=== PATIENT | female | born 1935 | race Caucasian/White ===

== ENCOUNTER → 2018-12-29 | Outpatient (CLI) | payer OTHER, MEDICARE ==
[~2018-12-29] MED LIST: ASA5UEC PO; CALCIUM 600 +1 EAC1 PO; CARVEDILOL25 MG PO; CENTRUM SILVER1 EAC4 PO; CIPRO500 MG PO; FISH OIL 1,001000 MG PO; FLAXSEED OIL1000 MG PO; GINGER ROOT550 MG PO; GLUCOSAMINE HC500 MG PO; LOPRESSOR50 PO; LOVASTAT40 PO; PRED FORTE 1% EY5 M1 OPHTHALMIC; PRILOSEC20 MG PO; TIMOLOL MA0.5 %/5 M2 OPHTHALMIC; VITAMIN D2000 UNIT PO; VITAMIN E400 UNIT PO; XALATAN2.5 ML OPHTHALMIC
== END ==
LOC: BC 15:25
DX: Z12.31 Encounter for screening mammogram for malignant neoplasm of breast (principal)

== ENCOUNTER 2019-03-21 19:40 | Inpatient (IN) | payer OTHER, MEDICARE ==
[~2019-03-21] VITALS: Ht 165.1 cm; Wt 71.2 kg
[2019-03-21 19:41] VITALS: BP 125/101
[2019-03-21 20:25] LABS: BASOPHILS 0.4 % (0.0-2.0); EOSINOPHILS 1.3 % (0.0-3.0); HEMATOCRIT 36.6 % (37.0-47.0); HEMOGLOBIN 12.1 gm/dL (12.0-15.0); LYMPHOCYTES 20.9 % (24.0-44.0); MCH 31.8 pg (26.0-34.0); MCV 96.2 fL (80.0-100.0); MONOCYTES 8.5 % (1.0-8.0); PLATELET COUNT 167 thou/uL (150-400); POLYS 68.9 % (36.0-66.0); RBC 3.81 mil/uL (4.20-5.00); RDW 15.4 % (10.5-14.5); WBC 4.4 thou/uL (4.0-11.0)
[2019-03-21 20:32] LABS: ANION GAP 6 mmol/L (7-16); BUN 15 mg/dL (7-18); CALCIUM 9.6 mg/dL (8.5-10.1); CHLORIDE 98 mmol/L (98-107); CO2 28 mmol/L (21-32); CREATININE 0.9 mg/dL (0.6-1.0); GLUCOSE 139 mg/dL (74-106); SODIUM 132 mmol/L (136-145)
[2019-03-21 20:42] LABS: ALBUMIN 3.8 g/dL (3.4-5.0); SGOT 42 U/L (15-37); SGPT 45 U/L (30-65); TOTAL BILIRUBIN 0.8 mg/dL (<0.1-1.0); TOTAL PROTEIN 7.4 g/dL (6.4-8.2); TROPONIN-I <0.06 ng/mL (<0.06)
[2019-03-21 21:45] VITALS: BP 177/101
[2019-03-21 22:54] VITALS: BP 153/96
[2019-03-21 23:15] VITALS: BP 150/111
--- NOTE | 2019-03-22 01:39 | NUR ---
ADMIT:PT ADMITTED FROM ED WITH CHEST PAIN,DYSPNEA AND HYPONATREMIA,PT ARRIVED TO UNIT VIA CART ACCOMPANIED BY THE FAMILY..PT IS A/OX4.VSS.ON RA W/O RESPIRATORY DISTRESS.PT C/O PAIN THAT IS INTERMITTENT,STABBING PAIN THAT IS BELOW HER LEFT BREAST AND GOES TO HER BACK AND LASTS FOR SECONDS AND THEN DISAPPER.UNABLE TO DO MED RECONCILLATION SINCE PATIENT'S OR DAUGHTER DOES NOT REMEMBER WHAT KIND OF MEDICATION PT IS ON,DAIGHTER TO BRING HER MEDS BOTTLES HERE IN THE MORNING.ORIENTED PT AND FAMILY TO RM AND UNIT ACTIVITIES,REVIEWED POC AND IN AGREEMENT.ASSESSMENT DOCUMENTED.UP WITH SBA TO BEDSIDE COMMOND.URINATING FREQUENTLY R/T LASIX ADMINISTRATION AT THE ED.PT DENIES ANY OTHER NEEDS AT THIS TIME.DR WATSON AWARE OF PT ADMISSION.WILL CONT TO MONITOR PER POC.
[2019-03-22 04:02] VITALS: BP 153/85
[2019-03-22 07:40] VITALS: BP 150/95
[2019-03-22] MEDS ORDERED: LISINOPRIL2.5 MG PO (10:29)
--- NOTE | 2019-03-22 11:42 | EKG ---
[address] [address] ELECTROCARDIOGRAM REPORT Name: TIMOTHY MUJICA Room #: 209-P ADM IN M.R.#: [id number] Admission: 03/21/19 Attend Phys: Darrick Nunez MD Discharge: Date of : 37 Report #: [id number] THIS REPORT FOR: //name// [facility] ED Test Date: 2019-03-21 Test Time: 20:04:09 Pat Name: TIMOTHY MUJICA Department: Room: 209 Gender: F Behavioral Psychologist: JOSEFINA : 1935 Requested By: Lucila Shell Order Number: [id number] MD: Miah Alfaro Measurements Intervals [place] Rate: 96 P: [place]: QRS: 77 QRSD: 125 T: 16 QT: 340 QTc: 430 Interpretive Statements Atrial fibrillation Nonspecific intraventricular conduction delay Compared to ECG 08/26/2014 16:06:55 Intraventricular conduction delay now present Sinus rhythm no longer present Sinus arrhythmia no longer present Ventricular premature complex(es) no longer present Electronically Signed On 03-22-2019 11:42:22 CDT by Miah Alfaro [email or web address] <ELECTRONICALLY SIGNED> By: Miah Alfaro MD 03/22/19 1142 03 03 Miah Alfaro MD /EMORY
[2019-03-22 15:25] VITALS: BP 149/93
--- NOTE | 2019-03-22 18:20 | NUR ---
PATIENT HAS RESTED IN BED MOST OF THE DAY. STARTED ON ISOLATION FOR SHINGLES. SHE DOES NOT SEEM TO BE IN PAIN AT THIS TIME. RESPITRAIONS ARE NON LABORED. PLEASANT WITH CARE. WILL CONT WITH PLAN OF CARE.
[2019-03-22 19:32] VITALS: BP 156/83
[2019-03-23 01:04] LABS: URINE BILIRUBIN NEGATIVE (Negative); URINE BLOOD 1+ (Negative); URINE CLARITY CLEAR; URINE COLOR YELLOW; URINE GLUCOSE-RANDOM* NEGATIVE (Negative); URINE KETONES NEGATIVE (Negative); URINE NITRITE-REFLEX NEGATIVE (Negative); URINE PROTEIN (DIPSTICK) TRACE (Negative); URINE UROBILINOGEN 0.2 E.U./dl (0.2-1.0)
[2019-03-23 01:08] VITALS: BP 146/89
[2019-03-23 02:01] LABS: URINE LEUKOCYTES-REFLEX 3+ (Negative)
[2019-03-23 02:14] LABS: BACTERIA-REFLEX 1-9 Few /HPF (None Seen); CASTS None Seen /LPF (None Seen); CRYSTALS None Seen /LPF (None Seen); MUCUS 0-3 Light strn/LPF (None Seen); SQUAMOUS >10 Many /LPF (0-3); TRANSITIONAL EPITHEL CELL >10 Many /LPF (None Seen); URINE RBC 3-10 Few /HPF (0-2)
--- NOTE | 2019-03-23 02:50 | NUR ---
ASSUMED CARE OF PATIENT AT 1900. VSS, AFEBRILE. UP TO THE BATHROOM MULTIPLE TIMES WITH NO OUTPUT. BLADDER SCAN SHOWED 100 CC. URINE SAMPLE SENT TO LAB. C/O LEFT SIDED INTERMITTENT PAIN, GIVEN TYLENOL, STATES RELIEF. NO OTHER CONCERNS AT THIS TIME. PROGRESSING TOWARDS POC GOALS.
[2019-03-23 04:08] VITALS: BP 133/75
--- NOTE | 2019-03-23 07:54 | HC ---
[facility] [place] [address] CONSULTATION Name: TIMOTHY MUJICA Room #: 209-P ADM IN M.R.#: [id number] Admission: 03/21/19 Attend Phys: Darrick Nunez MD Discharge: Date of : 36 Report #: [id number] THIS REPORT FOR: //name// CC: Bandar Nunez DATE OF SERVICE: 03/22/2019 CARDIOLOGY CONSULTATION INDICATION: Dyspnea. HISTORY OF PRESENT ILLNESS: This is a pleasant 84-year-old female with a history of congenital heart disease, hypertension, lupus, TIA and hypercholesterolemia. For the past several days, she has noted increasing dyspnea with mild levels of physical exertion. She also notes a discomfort in the lateral chest area, near her left scapula. She denies any recent episodes of fever, chills, nausea or diarrhea. She has a history of congenital heart disease. The patient is unclear of the diagnosis or surgery. 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 PAST MEDICAL HISTORY: Congenital heart with surgery at age 17, details unknown. 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 Hyperlipidemia and GERD. ALLERGIES: None. MEDICATIONS: At home include lovastatin 40 mg, aspirin once a day, Prilosec, Coreg 25 mg twice a day. FAMILY HISTORY: Negative for premature CAD. SOCIAL HISTORY: Positive for tobacco use. REVIEW OF SYSTEMS: A full 10-point review of systems is performed. Only the pertinent positives and negatives are described in the HPI. PHYSICAL EXAMINATION: VITAL SIGNS: Blood pressure is 150/90. Heart rate is 120 beats per minute. GENERAL APPEARANCE: This is a well-developed, well-nourished female in no acute distress. HEENT: Normocephalic, atraumatic. Oral mucosa moist. NECK: Supple. LUNGS: Clear to auscultation. [facility] [address] [place] [address] CONSULTATION Name: TIMOTHY MUJICA Room #: 209-P [facility] IN .R.#: [id number] Admission: 03/21/19 Attend Phys: Darrick Nunez MD Discharge: Date of : 36 Report #: [id number] CARDIAC: Tachycardic. S1, S2 positive. ABDOMEN: Soft, nontender. EXTREMITIES: No cyanosis. Trace edema. ECG reveals atrial fibrillation with a rapid rate, low voltage. LABORATORY VALUES: Troponin is negative x 2. White count is 4.4, hemoglobin is 12.1, creatinine is 0.9. 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 ASSESSMENT AND PLAN: 1. Atrial fibrillation with a rapid rate, no prior diagnosis, most likely contributing to her dyspnea on exertion. Her heart rate is not adequately controlled. We will change the beta kashif to atenolol. She has an elevated CHADS score; we will start anticoagulation therapy. She will need an echocardiogram and TSH level check. 2. Hypertension. We will start atenolol for rate control, may need additional medications. 3. Hypercholesterolemia. Continue with statin therapy. 4. Congenital heart disease. We will obtain an echocardiogram. <ELECTRONICALLY SIGNED> By: Miah Alfaro MD 03/23/19 0754 1222 0020 Miah Alfaro MD /nt
[2019-03-23 08:00] VITALS: BP 153/75
--- NOTE | 2019-03-23 09:02 | H ---
[facility] [place] [address] [place] [address] HISTORY AND PHYSICAL Name: TIMOTHY MUJICA Room #: 209-P ADM IN M.R.#: [id number] Admission: 03/21/19 Attend Phys: Darrick Nunez MD Discharge: Date of : 36 Report #: [id number] THIS REPORT FOR: //name// CC: Bandar Nunez DATE OF SERVICE: 03/22/2019 CHIEF COMPLAINT: Wheezing and shortness of breath. HISTORY OF PRESENT ILLNESS: The patient is an 84-year-old female who came to the Emergency Room with wheezing and shortness of breath. She developed symptoms late yesterday afternoon was also complaining of pain in the left rib area. She had no fever, chills or productive cough. She has noted a little bit of swelling in the ankles, left greater than right, which is a chronic issue. She does have a history of atrial fibrillation and takes carvedilol and aspirin, but has not been on oral anticoagulation. She has also complained of a rash on the left mid back. In talking to her today, she said the left chest and rib pain has been an ongoing problem for months. She describes it as a quick "sharp" seconds of pain that resolved spontaneously. It is not associated with any particular activity. PAST MEDICAL HISTORY: Hypertension, atrial fibrillation, dyslipidemia, history of TIA 2014. PAST SURGICAL HISTORY: She has a left hip and knee replacement, right hip replacement, hysterectomy. FAMILY HISTORY: Noncontributory. SOCIAL HISTORY: She lives at home alone. No chronic alcohol or tobacco use. ALLERGIES: None. MEDICATIONS: Eye drops, aspirin 325 mg, Prilosec, multivitamin, glucosamine, lisinopril 40 mg, Coreg 25 mg b.i.d. REVIEW OF SYSTEMS: Denies headache, chest pain, abdominal pain, nausea, vomiting, diarrhea, constipation, dysuria, syncope. OBJECTIVE: VITAL SIGNS: Temperature 36.8, pulse 114, respirations 20, blood pressure 150/95, O2 sat 99% on room air. GENERAL: She is awake and alert, in no distress. HEAD AND NECK: Unremarkable. LUNGS: Clear. [facility] [address] [place] [address] HISTORY AND PHYSICAL Name: TIMOTHY MUJICA OCTOBER Room #: 209-P [facility] IN .R.#: [id number] Admission: 03/21/19 Attend Phys: Darrick Nunez MD Discharge: Date of : 36 Report #: [id number] HEART: Tachycardic, irregular. No murmur. ABDOMEN: Soft, normoactive bowel sounds. EXTREMITIES: No edema. BACK: On the left mid back, there is a small area of red rash with some small blisters. LABORATORY DATA: CBC and chemistry were normal. Troponin negative. Chest x-ray was clear. BNP was 5000. ASSESSMENT: 1. Rapid atrial fibrillation. 2. Hypertension. 3. Possible herpes zoster in the left mid back. 4. Chest pain due to the above. PLAN: I will resume her home medications. It does not appear she has been on chronic anticoagulation, but merely an aspirin. There was a report of nonsustained V-tach overnight magnesium and troponin will be ordered and I will ask the Cardiology team to follow her. <ELECTRONICALLY SIGNED> By: Darrick Nunez MD 03/23/19 0902 1041 1100 Darrick Nunez MD /nt
[2019-03-23 12:00] VITALS: BP 151/89
--- NOTE | 2019-03-23 13:36 | 2DMMODE ---
[facility] [employer] [place] [address] 2 D/M-MODE ECHOCARDIOGRAM Name: TIMOTHY MUJICA OCTOBER Room #: 209-P ADM IN M.R.#: [id number] Admission: 03/21/19 Attend Phys: Jessy Peck Discharge: Date of : 36 Report #: [id number] THIS REPORT FOR: //name// APPROVED REPORT Study performed: 03/23/2019 09:13:00 EXAM: Comprehensive 2D, Doppler, and color-flow Echocardiogram Patient Location: Echo lab Room #: 209 Status: routine BSA: 1.78 HR: 101 bpm BP: 133/75 mmHg Rhythm: Atrial Fibrillation Other Information Study Quality: Adequate Indications Congenital Heart Disease Atrial Fibrillation Hypertension/HDD HLD, Hx TIA Echo Enhancing Agent Indication: Rule out Shunt Agent(s) / Amount(s) Used: Agitated Saline 6 cc 2D Dimensions RVDd: 53.94 mm IVSd: 12.09 (7-11mm) LVOT Diam: 22.10 (18-24mm) LVDd: 34.44 mm PWd: 12.81 (7-11mm) Ascending Ao: 31.61 (22-36mm) LVDs: 23.14 (25-40mm) Aortic Root: 33.26 mm Volumes Left Atrial Volume (Systole) Single Plane 4CH: 87.92 mL Single Plane 2CH: 90.12 mL Aortic Valve AoV Peak Bhaskar.: 1.69 m/s AO Peak Gr.: 11.44 mmHg LVOT Max P.86 mmHg LVOT Max V: 0.46 m/s [facility] [address] [place] [address] 2 D/M-MODE ECHOCARDIOGRAM Name: TIMOTHY MUJICA OCTOBER Room #: 209-P [facility] IN ..#: [id number] Admission: 03/21/19 Attend Phys: Jessy Peck Discharge: Date of : 36 Report #: [id number] DOMO Vmax: 1.05 cm2 Mitral Valve MV Decel. Time: 157.29 ms MV E Max Bhaskar.: 1.50 m/s IVRT: 155.71 ms Pulmonary Valve PV Peak Bhaskar.: 2.21 m/s PV Peak Gr.: 12.71 mmHg Tricuspid Valve TR Peak Bhaskar.: 3.25 m/s TR Peak Gr.: 42.29 mmHg Left Ventricle The left ventricle is normal size. Regional wall motion is not well visualized but grossly normal. Mild concentric left ventricular hypertrophy. The left ventricular systolic function is normal. The left ventricular ejection fraction is within the normal range. LVEF is 55%. This study is not technically sufficient to allow evaluation of the LV diastolic function due to atrial fibrillation. Right Ventricle Right ventricle is severely dilated. Right ventricle is moderately hypokinetic. Atria Left atrium is severely dilated. Injection of bubble contrast documented right to left shunting. Right atrium is moderately dilated. Aortic Valve Aortic valve leaflets are mildly thickened and calcified. Mild aortic regurgitation. There is no aortic valvular stenosis. Mitral Valve Mitral valve leaflets are mildly sclerotic. Severe mitral regurgitation. No evidence of mitral valve stenosis. Tricuspid Valve The tricuspid valve is normal in structure. Moderate tricuspid regurgitation. PAP is estimated at 50 mmHg. Pulmonic Valve Pulmonic valve leaflets are not well visualized. Mild to moderate pulmonic stenosis. Max PV velocity is 2.2 m/sec (max peak gradient of [facility] [address] [address] 2 D/M-MODE ECHOCARDIOGRAM Name: TIMOTHY MUJICA AMRIT Room #: 209-P ADM IN M.R.#: [id number] Admission: 03/21/19 Attend Phys: Jessy Peck Discharge: Date of : 36 Report #: [id number] 19 mmHg and a mean peak gradient of 9.6 mmHg) Severe pulmonic regurgitation. Great Vessels The aortic root is normal in size. IVC is normal in size and collapses <50% with inspiration. 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 Pericardium There is no pericardial effusion. <Conclusion> The left ventricular systolic function is normal. LVEF is 55%. Right ventricle is severely dilated. Injection of bubble contrast documented right to left shunting. Left atrium is severely dilated. Right atrium mildly dilated Aortic valve leaflets are mildly thickened and calcified. Mild aortic regurgitation, no stenosis. Mitral valve leaflets are mildly sclerotic. Severe mitral regurgitation. Moderate tricuspid regurgitation. Pulmonary artery pressure estimated at 50 mmHg. Mild pulmonic stenosis. Max PV velocity is 2.2 m/sec (max peak gradient of 19 mmHg and a mean peak gradient of 9.6 mmHg) Severe pulmonic regurgitation. 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 There is no pericardial effusion. <ELECTRONICALLY SIGNED> By: Donald Walters MD, FACC 03/23/19 1336 35 35 Donald Walters MD, FACC /INF
[2019-03-23 16:00] VITALS: BP 140/82
--- NOTE | 2019-03-23 17:44 | NUR ---
ASSUMED CARE OF PT AT SHIFT CHANGE. ASSESSMENTS CHARTED. MEDS GIVEN PER AUG. VSS. A&OX4. NO C/O SOA. C/O PAIN TREATED WITH PO MEDS WITH SOME RELIEF. ULTRASOUND TODAY FOUND NO EVIDENCE OF DVT. PT IS REFUSING BED ALARM, WAS EDUCATED ON IMPORTANCE OF FALL PRECAUTIONS DUE TO AFIB. PT STATED DR. BOX SAID SHE DIDN'T NEED THE BED ALARM. PHYS THERAPY WORKED WITH PT AND ENCOURAGED HER TO USE WALKER FULLTIME. PLAN TO GO HOME TOMORROW IF RATE IS CONTROLLED. WILL CONTINUE TO MONITOR AND FOLLOW POC.
[2019-03-23 20:38] VITALS: BP 153/78
[2019-03-24 04:41] VITALS: BP 115/67
[2019-03-24 06:14] LABS: CALCIUM 9.3 mg/dL (8.5-10.1); POTASSIUM 3.5 mmol/L (3.5-5.1)
--- NOTE | 2019-03-24 07:51 | EKG ---
[address] [address] ELECTROCARDIOGRAM REPORT Name: TIMOTHY MUJICA Room #: 209-P ADM IN M.R.#: [id number] Admission: 03/21/19 Attend Phys: Darrick Nunez MD Discharge: Date of : 36 Report #: [id number] THIS REPORT FOR: //name// [facility] Test Date: 2019-03-23 Test Time: 08:40:53 Pat Name: TIMOTHY MUJICA Department: Room: 209 P Gender: F Night Order Selector: Rosendo RODRIGUEZ : 1935 Requested By: Kimmy Zapata Order Number: [id number] MD: Donald Walters Measurements Intervals [place] Rate: 93 P: [place]: QRS: 72 QRSD: 137 T: 27 QT: 361 QTc: 449 Interpretive Statements Atrial fibrillation Nonspecific intraventricular conduction delay Compared to ECG 03/21/2019 20:04:09 No significant changes Electronically Signed On 03-24-2019 7:50:53 CDT by Donald Walters [email or web address] <ELECTRONICALLY SIGNED> By: Donald Walters MD, [facility] 03/24/19 0750 D: [id number] Donald Walters MD, FACC /EPI
[2019-03-24 08:08] VITALS: BP 146/72
[2019-03-24 11:37] VITALS: BP 141/80
[2019-03-24] MEDS ORDERED: FAMCICLOVIR250 MG PO (13:33)
[2019-03-24] MEDS ORDERED: ELIQUIS5 MG PO (13:34)
[2019-03-24] MEDS ORDERED: ATENOLOL 25 MG25 M1 PO (13:34)
[2019-03-24] MEDS ORDERED: LISINOPRIL20 MG PO (13:35)
[2019-03-24] MEDS ORDERED: DILTIAZEM 24HR180 M1 PO (13:35)
[2019-03-24 14:04] VITALS: BP 141/80
--- NOTE | 2019-03-24 16:01 | NUR ---
ASSUMMED PT CARE AT APPROXIMATELY 0700. PT A&O X4. ASSESSMENT CHARTED. FALL PRECAUTIONS IN PLACE. PT AMBULATES STEADY/INDEPENDENT. PT DENIES SOB. PT DENIES CHEST PAIN. PT STATES SHE HAS GENERALIZED PAIN. PT RECEIVED ANALGESICS AND STATED ANALGESICS RELEIVED PAIN. PT VITAL SIGNS STABLE. PT DISCHARGING HOME WITH FAMILY. PT AND FAMILY RECEIVED DISCHARGE EDUCATION. PT AND FAMILY STATED UNDERSTANDING AND DENIED HAVING FURTHER QUESTIONS. IV DC. TELE DC. PT RECEIVING TRANSPORT OFF UNIT WITH HOSPITAL STAFF. PT LEFT UNIT AT APPROXIMATELY 1600. PT DENIES HAVING FURTHER CONCERNS.
--- NOTE | 2019-03-25 12:30 | D ---
[facility] [place] [facility] [place] [address] DISCHARGE SUMMARY Name: TIMOTHY MUJICA Room #: 209-P [facility] IN M.R.#: [id number] Admission: 03/21/19 Attend Phys: Darrick Nunez MD Discharge: 03/24/19 Date of : 36 Report #: [id number] THIS REPORT FOR: //name// CC: Bandar Nunez DATE OF SERVICE: 03/24/2019 FINAL DIAGNOSES: 1. New-onset atrial fibrillation with rapid ventricular response. 2. Acute herpes zoster, left mid back. 3. Hypertension. 4. Mitral regurgitation. HOSPITAL COURSE: The patient was admitted with shortness of breath and wheezing. She was found to have rapid atrial fibrillation with heart rates in the [address] Alfaro was consulted. Medications were adjusted for rate control. She was switched from aspirin to Eliquis for anticoagulation and stroke risk reduction. She also complained of left rib and back pain, and there was a blister rash in 1 dermatome over the posterior ribs, consistent with herpes zoster outbreak. She was treated with oral Famvir. Echocardiogram was obtained, revealing severe mitral regurgitation. I discussed this with her and at this point, she would not be interested in any surgical intervention, and I recommended that we could pursue this as an outpatient workup. I did not feel an inpatient Thoracic Surgery consultation was necessary at this point, but again, can be followed up as an outpatient. She was eager for discharge home. PHYSICAL EXAMINATION: On the day of discharge: GENERAL: She was awake and alert. VITAL SIGNS: Stable and the heart rates in the 90s. LUNGS: Clear with no wheezing. SKIN: The left mid back rash was dry. HEART: Irregular. No murmur. ABDOMEN: Soft, normoactive bowel sounds. EXTREMITIES: No edema. DISPOSITION: She is discharged to home with diet and activity as tolerated. Followup with Dr. Andersen and Dr. Alfaro in 2 weeks. DISCHARGE MEDICATIONS: Famvir 500 mg t.i.d. for 5 more days, Eliquis 5 mg b.i.d., atenolol 75 mg b.i.d., diltiazem CD 180 mg a day, lisinopril 20 mg a [facility] [address] [place] [address] DISCHARGE SUMMARY Name: TIMOTHY MUJICA OCTOBER Room #: 209-P [facility] IN M.R.#: [id number] Admission: 03/21/19 Attend Phys: Darrick Nunez MD Discharge: 03/24/19 Date of : 37 Report #: [id number]. Resume losartan 40 mg, Prilosec, her eye drops, vitamin D, multivitamin, glucosamine. She is to discontinue aspirin 325 mg, Coreg and lisinopril 40 mg. <ELECTRONICALLY SIGNED> By: Darrick Nunez MD 03/25/19 1230 1341 1419 Darrick Nunez MD /nt
== END 2019-03-24 15:58 | disposition home or self-care (01) | DRG 309 ==
LOC: ER 19:40 → EROBS 21:30 → 2N 21:30
PROVIDERS: Internal Medicine Cardiovascular Disease; Nurse Practitioner Family; ADMIT Internal Medicine Geriatric Medicine
PROC: 3E0234Z Introduction of Serum, Toxoid and Vaccine into Muscle, Percutaneous Approach (ICD-10-PCS; principal; 2019-03-22)
DX: I48.91 Unspecified atrial fibrillation (principal); E87.1 Hypo-osmolality and hyponatremia; I10 Essential (primary) hypertension; M32.9 Systemic lupus erythematosus, unspecified; Z96.643 Presence of artificial hip joint, bilateral; Z96.652 Presence of left artificial knee joint; E78.00 Pure hypercholesterolemia, unspecified; Z96.1 Presence of intraocular lens; F17.210 Nicotine dependence, cigarettes, uncomplicated; E87.70 Fluid overload, unspecified; K21.9 Gastro-esophageal reflux disease without esophagitis; B02.9 Zoster without complications; E78.5 Hyperlipidemia, unspecified; Z60.2 Problems related to living alone; I08.8 Other rheumatic multiple valve diseases; Z90.710 Acquired absence of both cervix and uterus; Z86.73 Personal history of transient ischemic attack (TIA), and cerebral infarction without residual deficits; Z98.41 Cataract extraction status, right eye; Z79.899 Other long term (current) drug therapy; Z79.82 Long term (current) use of aspirin; Q24.9 Congenital malformation of heart, unspecified; Z23 Encounter for immunization
CPT/HCPCS: 10081

== ENCOUNTER 2019-03-31 15:23 | Inpatient (IN) | payer OTHER, MEDICARE ==
[~2019-03-31] VITALS: Ht 167.6 cm; Wt 72.3 kg
[~2019-03-31 15:23] MED LIST changes: +ATENOLOL 25 MG25 M1 PO; +DILTIAZEM 24HR180 M1 PO; +ELIQUIS5 MG PO; +FAMCICLOVIR250 MG PO; +LISINOPRIL2.5 MG PO; +LISINOPRIL20 MG PO
[2019-03-31 17:00] VITALS: BP 146/77
--- NOTE | 2019-03-31 17:58 | NUR ---
ASSUMMED PT CARE AT APPROXIMATELY 1600. PT A&O X4. ASSESSMENT CHARTED. ADMISSION COMPLETE. PT DENIES HAVING CHEST PAIN. PT DENIES HAVING SOB, ONLY ON EXERSION. VITAL SIGNS STABLE. PT DENIES HAVING ACUTE PAIN. PT COMFORTABLE IN BED. PT AND PT'S FAMILY EDUCATED ABOUT POC. PT AND PT'S FAMILY STATED UNDERSTANDING AND DENIED HAVING FURTHER QUESTIONS. PT AMBULATES STEADY C WALKER AND STANDBY. FALL PRECAUTIONS IN PLACE.
[2019-03-31 20:24] LABS: ABSOLUTE NEUTROPHILS 4.7 thou/uL (1.4-8.2); BASOPHILS 0.6 % (0.0-2.0); EOSINOPHILS 0.6 % (0.0-3.0); HEMATOCRIT 39.9 % (37.0-47.0); LYMPHOCYTES 18.4 % (24.0-44.0); MCH 31.2 pg (26.0-34.0); MCHC 32.6 g/dL (28.0-37.0); MCV 95.7 fL (80.0-100.0); MONOCYTES 4.9 % (1.0-8.0); PLATELET COUNT 238 thou/uL (150-400); POLYS 75.5 % (36.0-66.0); RBC 4.17 mil/uL (4.20-5.00); RDW 15.3 % (10.5-14.5); WBC 6.2 thou/uL (4.0-11.0)
[2019-03-31 20:33] LABS: ALBUMIN 3.4 g/dL (3.4-5.0); CALCIUM 9.1 mg/dL (8.5-10.1); CREATININE 0.9 mg/dL (0.6-1.0); TOTAL BILIRUBIN 1.1 mg/dL (<0.1-1.0); TOTAL PROTEIN 7.2 g/dL (6.4-8.2)
[2019-03-31 20:56] VITALS: BP 143/55
[2019-04-01 00:39] VITALS: BP 132/73
[2019-04-01 04:00] VITALS: BP 171/76
--- NOTE | 2019-04-01 05:25 | NUR ---
ASSUMED PT CARE AT 1900. PT IS ALERT AND ORIENTED. NO FAMILY AT BEDSIDE. NO SIGN OF DISTRESS NOTED. FALL PRECAUTION IN PLACE. ASSESSMENT COMPLETED AND CHARTED. SCHEDULED MEDS ADMINISTERED TO PT. PT TOLERATED PO INTAKE. NO SIGN OF DISTRESSNOTED INTAKE. PT IS STABLE. DENIES ANY FURTHER NEEDS AT THIS TIME.
[2019-04-01 07:28] VITALS: BP 150/86
--- NOTE | 2019-04-01 16:50 | NUR ---
pt off unit to xry.
--- NOTE | 2019-04-01 17:02 | NUR ---
PT RETURN FORM XRY TO ROOM.
--- NOTE | 2019-04-01 17:31 | EKG ---
[address] [address] ELECTROCARDIOGRAM REPORT Name: TIMOTHY MUJICA Room #: 207-P ADM IN M.R.#: [id number] Admission: 03/31/19 Attend Phys: Jessy Rapp Discharge: Date of : 37 Report #: [id number] THIS REPORT FOR: //name// [facility] Test Date: 2019-03-31 Test Time: 19:39:14 Pat Name: TIMOTHY MUJICA Department: Room: 207 P Gender: F Polytechnic Teacher: Jessy MASON : 1935 Requested By: Bandar Andersen Order Number: [id number] MD: Donald Walters Measurements Intervals [place] Rate: 62 P: [place]: QRS: 90 QRSD: 141 T: -4 QT: 420 QTc: 427 Interpretive Statements Atrial fibrillation Nonspecific intraventricular conduction delay Minimal ST depression Compared to ECG 03/23/2019 08:40:53 No significant change was found Electronically Signed On 04-01-2019 17:31:38 CDT by Donald Walters [email or web address] <ELECTRONICALLY SIGNED> By: Donald Walters MD, [facility] [id number] [phone] Donald Walters MD, [facility] /EPI
--- NOTE | 2019-04-01 17:40 | NUR ---
Met with patient and spoke with dtr, sister at bedside from [place]. Patient with recent dc from hospital. Sister reports when she came home from hospital she was very weak. sister reports she goes to bathroom and returned back to bed. Dtr reports patient has a dog and did not let out for 2 days. Discussed with dtr therapy recommendations of post acute care. Patient may need longterm care. dtr to review list for skilled.
[2019-04-01 21:07] VITALS: BP 127/60
--- NOTE | 2019-04-02 04:02 | NUR ---
PT ALERT AT ORIENTED. FAMILY AT BEDSIDE AT BEGINNING OF SHIFT. DENIES CHEST PAIN, SOB. NO WHEEZING. VITALS STABLE. PT C/O GENERALIZED PAIN. TRAMADOL SCHEDULED, AND PRN TYLENOL GIVEN. VOIDS BY BEDSIDE COMMODE. ASSIST OF ONE. WILL CONTINUE TO MONITOR.
[2019-04-02 05:56] VITALS: BP 136/83
[2019-04-02 06:41] LABS: ALBUMIN 3.2 g/dL (3.4-5.0); CALCIUM 8.9 mg/dL (8.5-10.1); CREATININE 0.9 mg/dL (0.6-1.0); POTASSIUM 3.8 mmol/L (3.5-5.1); TOTAL PROTEIN 6.6 g/dL (6.4-8.2)
[2019-04-02 07:55] VITALS: BP 146/70
--- NOTE | 2019-04-02 11:04 | H ---
[facility] [place] [address] HISTORY AND PHYSICAL Name: TIMOTHY MUJICA Room #: 207-P ADM IN M.R.#: [id number] Admission: 03/31/19 Attend Phys: Jessy Rapp Discharge: Date of : 37 Report #: [id number] THIS REPORT FOR: //name// CC: Bandar Andersen DATE OF SERVICE: 03/31/2019 CHIEF COMPLAINT: Weakness. HISTORY OF PRESENT ILLNESS: The patient is an 84-year-old female who was readmitted from the office with complaints of general weakness, leg swelling and left chest wall pain. She was recently hospitalized for shortness of breath and wheezing and was diagnosed with rapid atrial fibrillation, heart rates were in the 150s, rate control was achieved and she was placed on anticoagulation with Eliquis. During that stay, she was diagnosed and treated for shingles outbreak on the left chest wall, rib area and under the left breast. She was seen by Cardiology during that stay. An echocardiogram also revealed mitral regurgitation and tricuspid regurgitation with elevated pulmonary artery pressures. She was medically stabilized and discharged home with plans for outpatient referral to Cardiothoracic Surgery in regards to valve replacement. Cardiology followup. However, her sisters in town staying the last several days, she has been weaker. She has had a hard time getting around the home. She has had more pain in the left chest wall area and was too weak to care for herself. She was seen in the office and redirected for admission yesterday. PAST MEDICAL HISTORY: Atrial fibrillation, recent shingles outbreak, mitral regurgitation, hypertension, osteoarthritis. PAST SURGICAL HISTORY: She has had a left hip and knee replacement and a right hip replacement and hysterectomy. FAMILY HISTORY: Noncontributory. SOCIAL HISTORY: She lives at home alone. No chronic alcohol or tobacco use. ALLERGIES: None. MEDICATIONS: Eliquis 5 mg twice a day, atenolol 75 mg twice a day, diltiazem 180 mg a day, lisinopril 20 mg, eyedrops, vitamins. REVIEW OF SYSTEMS: She denies headache, chest pain, shortness of breath, abdominal pain, nausea, vomiting, diarrhea, constipation, dysuria, syncope. OBJECTIVE: VITAL SIGNS: Temperature 36.4, pulse 74, respirations 18, blood pressure 150/86, O2 sat 97% on room air. [address] [address] HISTORY AND PHYSICAL Name: TIMOTHY MUJICA OCTOBER Room #: 207-P ADM IN M.R.#: [id number] Admission: 03/31/19 Attend Phys: Jessy Rapp Discharge: Date of : 37 Report #: [id number] GENERAL: She is awake and alert, in no distress. HEAD AND NECK: Unremarkable. LUNGS: Clear with no wheezing. HEART: Irregular. No murmur. CHEST: Chest wall shows healing herpes zoster on the left posterior ribs and under the left breast. ABDOMEN: Soft, normoactive bowel sounds. EXTREMITIES: 1+ edema. NEUROLOGIC: Motor strength 4/5 throughout. LABORATORY DATA: Reviewed. ASSESSMENT: 1. Mitral regurgitation. 2. Atrial fibrillation. 3. Postherpetic neuralgia. 4. Hypertension. 5. General debility. PLAN: Cardiology service will reassess her in for opinion on need for valve intervention versus continued outpatient workup and treatment, pain control and therapies to be initiated as well. <ELECTRONICALLY SIGNED> By: Darrick Nunez MD 04/02/19 1104 1245 1315 Darrick Nunez MD /nt
[2019-04-02 12:00] VITALS: BP 119/62
--- NOTE | 2019-04-02 13:04 | NUR ---
FAXED REFERRAL TO [facility] SPOKE WITH STUART IN ADM SHE RECEIVED REFERRAL AND CAN ACCEPT AT DISCHARGE. FA[facility]ED REFERRALL TO [facility] SPOKE WITH ISATU IN ADM SHE RECEIVED REFERRAL AND CAN ACCEPT PT AT DC IF PT GOING SKILLED TO HOME IF PT GOING SKILLED TO LTC THEY WOULD NEED MEDICAID [place]. STARTED. FA[facility]ED REFERRAL TO [facility] RECEIVED CONFIRMATION AMD LEFT MSG WITH CARLOS A IN ADM THAT FACILITY IS PT'S FIRST CHOICE. DP TO FOLLOW.
--- NOTE | 2019-04-02 14:51 | NUR ---
Coal Inspector visited with the pt this morning at bedside along with her sister Espinoza who was with her and dtr Amparo via speaker phone. All agreeable that the pt can not go directly home alone. Therapy is recommending snf stay. Care team and the attending updated and agreeable. Possible dc tomorrow. SNF listing reviewed. Dtr interested in , [facility] and [facility] in that order. Dc process planner has sent referrals and all can accept. Dtr to tour this evening and she can meet the pt at the facility tomorrow once dc timeframe arranged. Pt's sister espinoza will be flying home tomorrow to [place]. Will follow.
[2019-04-02 15:45] VITALS: BP 84/48
[2019-04-02 16:06] VITALS: BP 95/57
[2019-04-02 19:53] VITALS: BP 111/60
--- NOTE | 2019-04-02 20:02 | NUR ---
ASSUMED CARE OF PT AT SHIFT CHANGE. ASSESSMENTS CHARTED. MEDS GIVEN PER AUG. PT ALERT AND ORIENTED, VSS- PT HAD LOW BP AND LOW O2 IN AFTERNOON, ASYMPTOMATIC, 2L O2 PUT ON, O2 RESOLVED. DENIES SOB. BP WNL WITH CONTINUED MONITORING. C/O PAIN GENERALIZED, MANAGED WITH PO PAIN MEDS. SISTER AT BEDSIDE THROUGHOUT SHIFT. PT WORKED WITH PHYS THERAPY AND OT TOLERATING WELL. CARDIOLOGY ROUNDED ON PT, EDUCATING THAT PT IS NOT CANDIDATE FOR VALVE REPLACEMENT PROCEDURE. DR BOX AWARE. PLAN IS FOR PT TO DC TO REHAB OR SKILLED TOMORROW. DENIES NEEDS AT THIS TIME. REPORT GIVEN TO NIGHT NURSE.
--- NOTE | 2019-04-03 03:49 | NUR ---
ASSUMED CARE AT 1900. AO X4. STILL C/O GENERAL PAIN, TRAMADOL SCHEDULED. VOIDING BY BESIDE COMMODE. DENIES SOB. NO NAUSEA OR VOMITING NOTED. PLAN TO POSSIBLY DC O SNF TODAY. WILL CONTINUE TO FOLLOW PLAN OF CARE.
[2019-04-03 04:32] VITALS: BP 148/70
[2019-04-03 07:45] VITALS: BP 143/77
[2019-04-03 11:25] VITALS: BP 116/69
[2019-04-03] MEDS ORDERED: TRAMADOL 50 MG50 MG PO (12:06)
[2019-04-03] MEDS ORDERED: ACETAMINOPHEN325 M1 PO (12:06)
[2019-04-03] MEDS ORDERED: GABAPENTIN 100100 MG PO (12:07)
--- NOTE | 2019-04-03 14:11 | NUR ---
PT DISCHARGING TODAY TO [facility] FAXED DC ORDERS/SUMMARY TO FACILITY SPOKE WITH CARLOS A IN ADM SHE ARRANGED TRANSPORT BY [facility] FOR [id number] TODAY. NOTIFIED PT'S DTR (GEORGINA) OF DC AND TRANSPORT TIME. UNIT NOTIFIED AND CHART COPY PER US. RN TO CALL REPORT TO [phone].
[2019-04-03 15:05] VITALS: BP 106/50
--- NOTE | 2019-04-03 15:52 | NUR ---
PT CARE ASSUMED APPROX 0700. ASSESSMENT CHARTED. PT DENIES SOA. VSS. REPORTS CHRONIC GENERALIZED PAIN. MANAGING PAIN WITH SCHEDULED MEDS. UP WITH SBA OF ONE. DISCHARGED AT THIS TIME. REPORT CALLED TO NURSE OVALLE. RECEIVING NURSE DENIES QUESTIONS OR CONCERNS REGARDING POC OR POST HOSPITAL POC. IV OUTM TELE BOX OFF. NO ISSUES WITH FACILITY TRANSPORTATION JUSTICE COURT JUDGE NOTED.
--- NOTE | 2019-04-03 16:38 | NUR ---
Pt dc'd to snf at today via their w/c van service. Dtr Amparo agreeable and meeting the pt at the facility to get her admitted. Amparo will discuss possible ltc placement with them as well should she not be able to return home alone. 124c completed and signed by the attending and sent with the pt's chart copy and orders. Nursing has called report. Case closed.
--- NOTE | 2019-04-07 12:54 | D ---
[facility] [place] [address] DISCHARGE SUMMARY Name: TIMOTHY MUJICA Room #: 207-P DIS IN M.R.#: [id number] Admission: 03/31/19 Attend Phys: Jessy Rapp Discharge: 04/03/19 Date of : 37 Report #: [id number] THIS REPORT FOR: //name// CC: Bandar Andersen FINAL DIAGNOSES: 1. Atrial fibrillation. 2. Postherpetic neuralgia of the left chest wall. 3. Hypertension. HOSPITAL COURSE: The patient was admitted from home with weakness. Medically, there were no new changes and she was seen by the Cardiology Service due to her valvular heart disease found on previous hospitalization. There are no plans for invasive or surgical intervention at this time. Usual medications were continued and tramadol and gabapentin were added for neurology pain, which improved. PHYSICAL EXAMINATION: On the day of discharge: GENERAL: She was awake and alert with stable vital signs. She was requiring oxygen at 1-2 liters as needed. LUNGS: Clear. HEART: Regular. ABDOMEN: Soft, normoactive bowel sounds. EXTREMITIES: No edema. DISPOSITION: She is transferred to a [facility] facility for physical rehabilitation. DIET: Low sodium and activity as tolerated. I have signed her transfer medication list. FOLLOWUP: Follow up with Dr. Andersen 2 weeks after discharge. <ELECTRONICALLY SIGNED> By: Darrick Nunez MD 04/07/19 1254 1210 1232 Darrick Nunez MD /jacinta
== END 2019-04-03 15:58 | DRG 309 ==
LOC: 2N 15:23
PROVIDERS: Internal Medicine Geriatric Medicine; ADMIT Internal Medicine
DX: I48.91 Unspecified atrial fibrillation (principal); B02.29 Other postherpetic nervous system involvement; M19.90 Unspecified osteoarthritis, unspecified site; Z96.652 Presence of left artificial knee joint; Z96.643 Presence of artificial hip joint, bilateral; Z60.2 Problems related to living alone; I08.8 Other rheumatic multiple valve diseases; Z90.710 Acquired absence of both cervix and uterus; Z79.899 Other long term (current) drug therapy; Z79.01 Long term (current) use of anticoagulants
CPT/HCPCS: 10081

== ENCOUNTER 2019-04-09 14:37 | Inpatient (IN) | payer OTHER, MEDICARE ==
[~2019-04-09] VITALS: Ht 165.1 cm; Wt 68.9 kg
[~2019-04-09 14:37] MED LIST changes: +ACETAMINOPHEN325 M1 PO; +GABAPENTIN 100100 MG PO; +TRAMADOL 50 MG50 MG PO
[2019-04-09 14:38] VITALS: BP 107/32
[2019-04-09 15:34] LABS: ABSOLUTE NEUTROPHILS 4.3 thou/uL (1.4-8.2); BASOPHILS 0.6 % (0.0-2.0); EOSINOPHILS 0.4 % (0.0-3.0); HEMATOCRIT 42.7 % (37.0-47.0); HEMOGLOBIN 13.6 gm/dL (12.0-15.0); LYMPHOCYTES 17.4 % (24.0-44.0); MCH 31.4 pg (26.0-34.0); MCHC 31.8 g/dL (28.0-37.0); MCV 98.5 fL (80.0-100.0); MONOCYTES 7.5 % (1.0-8.0); PLATELET COUNT 209 thou/uL (150-400); POLYS 74.1 % (36.0-66.0); RBC 4.34 mil/uL (4.20-5.00); WBC 5.9 thou/uL (4.0-11.0)
[2019-04-09 15:41] LABS: ANION GAP 11 mmol/L (7-16); BUN 43 mg/dL (7-18); CALCIUM 9.3 mg/dL (8.5-10.1); CHLORIDE 100 mmol/L (98-107); CO2 21 mmol/L (21-32); CREATININE 1.6 mg/dL (0.6-1.0); GLUCOSE 174 mg/dL (74-106); POTASSIUM 4.7 mmol/L (3.5-5.1); SODIUM 132 mmol/L (136-145)
[2019-04-09 15:50] LABS: TROPONIN-I <0.06 ng/mL (<0.06)
[2019-04-09 15:59] LABS: MAGNESIUM 2.1 mg/dL (1.8-2.4)
--- NOTE | 2019-04-09 17:48 | EKG ---
[address] [address] ELECTROCARDIOGRAM REPORT Name: TIMOTHY MUJICA OCTOBER Room #: 170-10 ADM IN M.R.#: [id number] Admission: 04/09/19 Attend Phys: Jessy Rapp Discharge: Date of : 37 Report #: [id number] THIS REPORT FOR: //name// [facility] ED Test Date: 2019-04-09 Test Time: 14:46:08 Pat Name: TIMOTHY MUJICA Department: Room: 170 Gender: F Dirt Supervisor: ELENA : 1935 Requested By: Lv Harris Order Number: [id number] MD: Donald Walters Measurements Intervals [place] Rate: 51 P: GA: QRS: 92 QRSD: 139 T: 62 QT: 464 QTc: 428 Interpretive Statements Atrial fibrillation Nonspecific intraventricular conduction delay Compared to ECG 03/31/2019 19:39:14 Nonspecific change in the ST and T-wave segments Electronically Signed On 04-09-2019 17:48:15 CDT by Donald Walters [email or web address] <ELECTRONICALLY SIGNED> By: Donald Walters MD, MERGED WITH [facility] 04/09/19 1748 1446 1446 Donald Walters MD, MERGED WITH [facility] /EPI
[2019-04-09 18:55] LABS: URINE BILIRUBIN NEGATIVE (Negative); URINE BLOOD TRACE (Negative); URINE CLARITY CLEAR; URINE COLOR YELLOW; URINE GLUCOSE-RANDOM* NEGATIVE (Negative); URINE KETONES NEGATIVE (Negative); URINE NITRITE-REFLEX NEGATIVE (Negative); URINE PROTEIN (DIPSTICK) 1+ (Negative); URINE SPECIFIC GRAVITY 1.025 (1.005-1.035)
[2019-04-09 18:58] LABS: URINE CREATININE-RANDOM* 201.4 mg/dL; URINE LEUKOCYTES-REFLEX 1+ (Negative)
[2019-04-09 19:05] LABS: BACTERIA-REFLEX 1-9 Few /HPF (None Seen); CASTS None Seen /LPF (None Seen); CRYSTALS None Seen /LPF (None Seen); SQUAMOUS 4-10 Moderate /LPF (0-3); TRANSITIONAL EPITHEL CELL 0-3 Few /LPF (None Seen); URINE RBC 0-2 Rare /HPF (0-2); URINE WBC-REFLEX 6-15 Few /HPF (0-5)
--- NOTE | 2019-04-09 20:20 | NUR ---
CALLED BACK, NOTIFIED UA RESULT. NEW ORDERS OBTAINED.
[2019-04-09 22:20] VITALS: BP 132/71
[2019-04-09 23:00] VITALS: BP 129/87
[2019-04-10 03:28] VITALS: BP 142/96
[2019-04-10] MEDS ORDERED: ATENOLOL 25MG T25 M1 PO (05:50)
[2019-04-10] MEDS ORDERED: ARTIFICIAL TEAR1510 OPHTHALMIC (05:54)
[2019-04-10] MEDS ORDERED: SENNA PLUS TAB1 EACH PO (05:54)
[2019-04-10 07:37] VITALS: BP 154/82
--- NOTE | 2019-04-10 08:41 | NUR ---
PT ARRIVED FROM ER VIA CART. PLACED IN ROOM 350. ADMISSION ASSESSMENTS COMPLETED. PT IN AFIB PER TELEMETRY WITH RATES 60'S, REPORTEDLY IN THE 40'S UPON ARRIVAL TO ER. PT DENIES ANY CHEST DISCOMFORT OR SOA WHILE AT REST. RATES GENERALIZED PAIN AT 5/10 BUT DENIED NEED FOR ANY PAIN MEDICATION AT THAT TIME OR OVERNIGHT. SEE CHARTING.
[2019-04-10 11:04] VITALS: BP 138/79
--- NOTE | 2019-04-10 13:18 | NUR ---
ASSESSMENT: CM REVIEWED CHART. PT WAS ADMITTED WITH AFIB/DOLLY. PT WAS BROUGHT IN TO US FROM [facility] WHERE SHE WAS FOR A COUPLE WEEKS. PT REPORTS USING A WALKER FOR AMBULATION. PROIR TO SNF PATIENT LIVES AT HOME ALONE. PTS DAUGHTER ABI IS HER DPOA. DAUGHTER REPORTS THE PLAN IS FOR PATIENT TO RETURN TO [facility] ONCE MEDICALLY STABLE. CM FAXED UPDATED CLINICAL OVER TO [facility] AND LEFT VM TO UPDATE. CM WILL CONTINUE TO FOLLOW TO ASSIST NEEDED.
[2019-04-10 16:30] VITALS: BP 136/79
[2019-04-10 17:06] LABS: CALCIUM 8.9 mg/dL (8.5-10.1); CREATININE 0.9 mg/dL (0.6-1.0); POTASSIUM 3.9 mmol/L (3.5-5.1); TOTAL BILIRUBIN 0.7 mg/dL (<0.1-1.0)
[2019-04-10 19:55] VITALS: BP 132/75
[2019-04-11 03:45] VITALS: BP 123/81
[2019-04-11 04:40] LABS: CALCIUM 8.9 mg/dL (8.5-10.1); CREATININE 0.7 mg/dL (0.6-1.0); POTASSIUM 4.1 mmol/L (3.5-5.1)
[2019-04-11 07:12] VITALS: BP 154/79
--- NOTE | 2019-04-11 07:28 | NUR ---
PATIENT IS ALERT AND ORIENTED. PATIENT IS UP TO BSC WITH ASSISTANCE. PATIENT IS A FIB ON TELE. PATIENT IS 1.5L NC. PATIENTS LBM WAS 1ST. PATIENTS PAIN IS TREATED WITH PAIN MEDS. PATIENT IS RESTING COMFORTABLY IN BED. WCM. PENDING DISCUSION ON HEART SURGERY BEFORE DISCHARGE.
--- NOTE | 2019-04-11 08:02 | H ---
[facility] [place] [place] [address] HISTORY AND PHYSICAL Name: TIMOTYH MUJICA Room #: 350-P ADM IN M.R.#: [id number] Admission: 04/09/19 Attend Phys: Jessy Rapp Discharge: Date of : 36 Report #: [id number] THIS REPORT FOR: //name// CC: Bandar Rendon DATE OF SERVICE: 04/09/2019 CHIEF COMPLAINT: Weakness. HISTORY OF PRESENT ILLNESS: The patient is an 84-year-old female with a recent history of AFib, was sent back to the Emergency Room from her alf facility with hypotension and bradycardia. She was feeling weak and was reported of having low blood pressure and low heart rate. EMS arrived with a blood pressure noted to be 107 systolic and a bradycardia with AFib underlying rhythm. She was sent to the ER, medically stabilized and admitted overnight. PAST MEDICAL HISTORY: Atrial fibrillation, anticoagulation with Eliquis. 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 She had a recent shingles outbreak and postherpetic neuralgia on the left back and rib area, hypertension, dyslipidemia, osteoarthritis, previous left knee replacement, glaucoma. PAST SURGICAL HISTORY: As above. FAMILY HISTORY: Noncontributory. SOCIAL HISTORY: She was living at home. She is currently in a alf facility in [place] for rehabilitation after 2 recent hospitalizations. No chronic alcohol or tobacco use. ALLERGIES: None. MEDICATIONS: Eye drops, lovastatin, Prilosec, Timolol, tramadol, gabapentin, lisinopril, diltiazem, atenolol, Eliquis. REVIEW OF SYSTEMS: She complains of joint pain in her shoulders and left knee, some intermittent pain in the left ribs, otherwise, no headache, chest pain, shortness of breath, abdominal pain, nausea, vomiting, diarrhea, constipation, dysuria, syncope. OBJECTIVE: VITAL SIGNS: Temperature 36.6, pulse 79, respirations 16, blood pressure 138/79, O2 sat 97% on 2 liters. GENERAL: She is awake and alert, in no distress. HEAD AND NECK: Unremarkable. [facility] [address] [place] [address] HISTORY AND PHYSICAL Name: TIMOTHY MUJICA OCTOBER Room #: 350-P [facility] IN .R.#: [id number] Admission: 04/09/19 Attend Phys: Jessy Rapp Discharge: Date of : 37 Report #: [id number] LUNGS: Clear. HEART: Regular. ABDOMEN: Soft, normoactive bowel sounds. EXTREMITIES: No edema. NEUROLOGIC: Cranial nerves intact. Speech is fluent. Alert and oriented. SKIN: She has a resolving shingles rash in the left mid back and into the left breast. There are no open blisters. LABORATORY REVIEW: Urinalysis had white cells, bacteria. White count was normal. Creatinine 1.6. Magnesium and troponin negative. Urine culture pending. Chest x-ray, no infiltrate. ASSESSMENT: 1. Bradycardia. 2. Hypertension. 3. Acute kidney injury, likely prerenal azotemia. 4. Atrial fibrillation. 5. Recent herpes zoster, left chest wall. 6. Postherpetic neuralgia. 7. Osteoarthritis. 8. Debility. 9. Possible cystitis. PLAN: 1. Cardiology assessed her and decreased her antihypertensive and rate controlling medications. We will observe her on telemetry. Symptomatic treatment for the postherpetic neuralgia pain. This is her third admission with weakness and joint pains. I have ordered additional x-rays, CT and lab work to see if there is any other underlying inflammatory process or just related to chronic issues recent and pain from the recent shingles outbreak. 2. Valvular heart disease is a known issue from recent echocardiogram. She has had a known mitral valve issues since childhood. She has had previous left chest surgery. I have discussed these findings with Dr. Mancilla during her last admission and she was not a candidate for any procedural intervention at this time. We did not feel that she is symptomatic from her valvular heart disease. However, she has not been seen by Cardiothoracic Surgery and has noted Dr. Alfaro has asked Dr. Pacheco to visit with her and review those results, but this will likely be medical management process. <ELECTRONICALLY SIGNED> By: Darrick Nunez MD 04/11/19 0802 1212 1239 Darrick Nunez MD /nt
[2019-04-11 12:06] VITALS: BP 148/90
[2019-04-11 16:14] VITALS: BP 158/92
[2019-04-11 19:24] VITALS: BP 138/76
[2019-04-12 04:12] VITALS: BP 157/95
--- NOTE | 2019-04-12 04:39 | NUR ---
PATIENT SI ALERT AND ORIENTED. PATIENT IS UP SBA TO BSC. PATIENT IS ON 1.5LNC PER [facility]FORT[facility] PATIENT IS CONTROLLED A FIB ON TELE. PATIENT HAS FLAT AFFECT. PATIENT HAD A BATH. PATIENT IS PENDING POSSIBLE DC AND OUTPATIENT SURGERY AT [facility]. PATIENTS PAIN IS CONTROLLED WITH PAIN MEDICATION. PATIENT IS RESTING COMFORTABLY IN BED. WCM. PATIENT IS PROGRESSING TO GOALS
[2019-04-12 06:05] LABS: HEMATOCRIT 39.3 % (37.0-47.0); HEMOGLOBIN 12.7 gm/dL (12.0-15.0); MCH 31.5 pg (26.0-34.0); MCHC 32.2 g/dL (28.0-37.0); RBC 4.02 mil/uL (4.20-5.00); RDW 15.8 % (10.5-14.5); WBC 3.5 thou/uL (4.0-11.0)
[2019-04-12 06:28] LABS: ALBUMIN 2.8 g/dL (3.4-5.0); CALCIUM 8.7 mg/dL (8.5-10.1); CREATININE 0.6 mg/dL (0.6-1.0); POTASSIUM 3.7 mmol/L (3.5-5.1); TOTAL BILIRUBIN 0.5 mg/dL (<0.1-1.0); TOTAL PROTEIN 6.6 g/dL (6.4-8.2)
[2019-04-12 07:42] VITALS: BP 153/102
--- NOTE | 2019-04-12 11:23 | EKG ---
[address] [address] ELECTROCARDIOGRAM REPORT Name: TIMOTHY MUJICA AMRIT Room #: 350-P ADM IN M.R.#: [id number] Admission: 04/09/19 Attend Phys: Jessy Rapp Discharge: Date of : 37 Report #: [id number] THIS REPORT FOR: //name// [facility] Test Date: 2019-04-11 Test Time: 07:45:26 Pat Name: TIMOTHY MUJICA Department: Room: 350 P Gender: F Forest Firefighter: HARPREET : 1935 Requested By: Kimmy Zapata Order Number: [id number] MD: Enrique Tse Measurements Intervals [place] Rate: 70 P: [place]: QRS: 79 QRSD: 135 T: 1 QT: 383 QTc: 414 Interpretive Statements Atrial fibrillation Ventricular premature complex Nonspecific intraventricular conduction delay Compared to ECG 04/09/2019 14:46:08 Ventricular premature complex(es) now present Electronically Signed On 04-12-2019 11:22:53 AIR DUCT MECHANIC by Enrique Tse [email or web address] <ELECTRONICALLY SIGNED> By: Enrique Tse MD 04/12/19 1122 0745 Enrique Tse MD /EMORY
[2019-04-12 11:48] VITALS: BP 131/83
[2019-04-12 15:30] VITALS: BP 138/92
--- NOTE | 2019-04-12 18:48 | NUR ---
Patient had an abdominal ultrasound today. Based on the results, Dr. Lino ordered a pippida scan for tomorrow. Clear liquid diet today, NPO after MN.
[2019-04-12 19:11] VITALS: BP 150/80
--- NOTE | 2019-04-13 04:01 | NUR ---
PATIENT IS ALERT AND ORIENTED. PATIENT IS UP SBA TO BSC. PATIENT IS ON 1LNC. ROOM AIR IS BASELINE. PATIENT HAS BEEN NPO SENSE MIDNIGHT. PENDING PIPIDA SCAN TODAY. PATIENT IS RESTING COMFORTABLY IN BED. WCM. PATIENT IS PROGRSSING TO GOALS. POSSIBLE OUTPATIENT SURGERY ON MITRAL VALVE ONCE DISCHARGED AT [facility].
[2019-04-13 04:08] VITALS: BP 152/94
[2019-04-13 05:40] LABS: HEMATOCRIT 39.1 % (37.0-47.0); HEMOGLOBIN 12.9 gm/dL (12.0-15.0); MCH 32.2 pg (26.0-34.0); MCV 97.7 fL (80.0-100.0); RDW 15.7 % (10.5-14.5); WBC 3.9 thou/uL (4.0-11.0)
[2019-04-13 06:01] LABS: ALBUMIN 2.8 g/dL (3.4-5.0); DIRECT BILIRUBIN 0.2 mg/dL (<0.1-0.3); TOTAL BILIRUBIN 0.6 mg/dL (<0.1-1.0); TOTAL PROTEIN 6.7 g/dL (6.4-8.2)
[2019-04-13 06:09] LABS: CREATININE 0.7 mg/dL (0.6-1.0); POTASSIUM 4.2 mmol/L (3.5-5.1)
[2019-04-13 07:46] VITALS: BP 153/100
[2019-04-13 11:40] VITALS: BP 157/83
--- NOTE | 2019-04-13 13:10 | NUR ---
ON-GOING ASSESSMENT: CM REVIEWED CHART AND SPOKE WITH BEDSIDE RN. BEDSIDE RN REPORTS PT IS TO GET PIPIDA SCAN TODAY. AWAITING PLANS FOR CHOLECYSTITIS. CM FAXED UPDATED CLINICAL TO [facility]. CM WILL CONTINUE TO FOLLOW TO ASSIST NEEDED.
[2019-04-13 16:07] VITALS: BP 159/90
[2019-04-13 19:41] VITALS: BP 154/80
--- NOTE | 2019-04-13 20:32 | NUR ---
At 5pm today the patient's daughter pointed out her mother has two new sores: one on her left buttock - a quarter-sized, red and scabby skyler. She also has a red rash with vessicles on her pubis. Patient is working towards her discharge goals. Nursing will continue to monitor.
[2019-04-14 03:23] VITALS: BP 161/91
--- NOTE | 2019-04-14 03:31 | NUR ---
PT MAKING PROGRESS TOWARDS GOALS. PT RATING GENERALIZED PAIN AT 5/10 BUT AT GOAL LEVEL. REPORTS OCCASIONAL STABBING EPISODES OF PAIN IN HER ABDOMEN, BUT FLEETING IN NATURE. HAS QUARTER SIZED REDDENED AREA ON HER PUBIC REGION. PT WOULD ONLY ALLOW FEMALE RN TO VIEW. PT BELIEVES MIGHT BE A POSSIBLE SPOT FOR SHINGLES. PREVIOUS REPORTED SPOT FOR SHINGLES ARE DRY, SCABBED OVER AND APPEARING TO RESOLVE UNDER HER BREAST, LEFT SIDE OF TORSO AND BACK. WILL RESUME CONTACT PRECAUTIONS.
[2019-04-14 07:39] VITALS: BP 170/114
[2019-04-14 11:24] VITALS: BP 142/83
--- NOTE | 2019-04-14 12:36 | NUR ---
RD consult received for pt with poor oral intake. Frequent recent admissions, now admitted 04/09 with hypotension and gallbladder workup. Surgical Physician indicates now normal gallbladder function. Pt still nauseated and does not want to eat. States usually eats fine at home but intake down about a week. Reported usual wt of 140 however recent wt trends 150s. Willing to start trials of ensure enlive. Refusing lunch offered today. Low risk but continue to follow intake trends for improvement.
--- NOTE | 2019-04-14 12:44 | NUR ---
on-going assessment: CM REVIEWED CHART. PT IS HAVING SOME NAUSEA AND POOR PO INTAKE. PT IS SLOWLY PROGRESSING TOWARDS DISCHARGE GOALS. CM LEFT VM WITH ROCK AT [facility] TO UPDATE [phone]. CM WILL CONTINUE TO FOLLOW TO ASSIST NEEDED.
--- NOTE | 2019-04-14 13:08 | HC ---
[facility] [place] [address] CONSULTATION Name: TIMOTHY MUJICA Room #: 350-P ADM IN M.R.#: [id number] Admission: 04/09/19 Attend Phys: Jessy Rapp Discharge: Date of : 37 Report #: [id number] THIS REPORT FOR: //name// [facility] DATE OF SERVICE: 04/10/2019 We were asked by Dr. Alfaro to see the patient. I have been asked to see the patient previously in another hospital admission, but the patient at that time told me she was not interested in surgery and the consult was aborted. At this time, (apparently), a brother has got involved who has a much more aggressive stance. HISTORY OF PRESENT ILLNESS: The patient is an 84-year-old with history of atrial fibrillation. The patient was admitted to the hospital at this time with a combination of back pain and progressive fatigue. The patient states that the back pain is similar to that when she was admitted with shingles approximately one month ago. The weakness and shortness of breath appear to be progressive and the patient states that this has been building over the last 6 months or so. We note that a cardiac echo done on 03/23/2019 revealed severe pulmonic stenosis and incompetence and severe mitral incompetence. Left ventricular function is said to be normal. 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 The patient has a history of congenital heart disease and claims that she had a "baby valve" addressed when she was a child. This was done via a left posterolateral thoracotomy. 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 The patient is a bit confusing in her history, but she states that exploratory surgery was done, but that such a "baby valve" was not identified. The patient states that she was kept in an induced coma for 6 weeks after surgery. OTHER PAST MEDICAL HISTORY: Significant for hypertension. The patient has had a recent shingles outbreak with postherpetic neuralgia. The patient also has dyslipidemia, osteoarthritis and previous left knee replacement, and glaucoma. MEDICATIONS: Eye drops, lovastatin, Prilosec, Timolol, tramadol, gabapentin, lisinopril, diltiazem, atenolol, and Eliquis. ALLERGIES: None known. FAMILY HISTORY: The patient denies a family history of heart disease, but she states that she has outlived both her parents. [address] [address] CONSULTATION Name: TIMOTHY MUJICA OCTOBER Room #: 350-P [facility] IN M.R.#: [id number] Admission: 04/09/19 Attend Phys: Jessy Rapp Discharge: Date of : 36 Report #: [id number] SOCIAL HISTORY: The patient states she was living at home. She is currently in a longterm facility in [place]. REVIEW OF SYSTEMS: GENERAL: The patient describes fatigue. No fevers. EYES: No vision changes recently. HEENT: Denies headache, sore throat. RESPIRATORY: Denies shortness of breath. CARDIAC: Denies palpitations. No history of chest pain. GASTROINTESTINAL: No nausea, vomiting or blood. GENITOURINARY: No urgency, frequency, or blood. MUSCULOSKELETAL: Chronic left kneecap discomfort, but no recent changes, also as mentioned in the history the patient has back pain that appears to be related to postherpetic neuralgia. PHYSICAL EXAMINATION: GENERAL: The patient is lying in bed. She is oriented and appropriate. VITAL SIGNS: Temperature 36.6, heart rate 75, respiratory rate 20, blood pressure 136/79, O2 sat 100 on 2 liters. HEENT: No scleral icterus. Pupils are conjugate, but eye movements do not appear to be conjugate. The patient may have some esotropia. NECK: No mass, no bruit. CHEST: Clear to auscultation. HEART: Rhythm is regular with systolic murmur at the left sternal border. ABDOMEN: Soft. EXTREMITIES: No clubbing, cyanosis or edema. I do not feel popliteal pulses. No obvious bone or joint asymmetry or deformity. SKIN: I see no rash or infection. 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 Recent echo shows important mitral incompetence related to mitral sclerosis, but left ventricular ejection fraction is normal. 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 It is not clear where this is. I presume this is at the atrial level, but does not specified. To my mind a complete cardiac evaluation would include a transesophageal echo and a cardiac catheterization that being said on the basis of the information I have. My recommendation would be to explore MitraClip technology to address the mitral incompetence. The patient does not appear to have symptoms related to the pulmonic stenosis or the aneurysm; although, it would be difficult to embark [facility] [address] [place] [address] CONSULTATION Name: TIMOTHY MUJICA OCTOBER Room #: 350-P ADM IN ..#: [id number] Admission: 04/09/19 Attend Phys: Jessy Rapp Discharge: Date of : 36 Report #: [id number] on surgery without addressing those that would add risk without potentially adding benefit, however, and that is the basis for my recommendation. I have also shared this with Dr. Alfaro. The patient is an unusual case of adult congenital heart abnormality in conjunction with acquired disease and the pulmonary artery aneurysm is not something I have ever dealt with and it is probably beyond the scope of an institution such as ours. It is a privilege to participate in this challenging patient's care. Thank you for the consult. <ELECTRONICALLY SIGNED> By: Sly Pacheco MD 04/14/19 1308 1707 0726 Sly Pacheco MD /nt
[2019-04-14 15:15] VITALS: BP 122/73
--- NOTE | 2019-04-14 18:35 | NUR ---
ASSUMED PATIENT CARE AT 0700. A/O X4. LEFT CHEST TENDER PAIN. GENERLIZED WEAKNESS. POOR APPETIE. SLOWLY TOWARDS POC GOALS.
[2019-04-14 19:16] VITALS: BP 116/75
[2019-04-15 03:43] VITALS: BP 136/84
--- NOTE | 2019-04-15 05:56 | NUR ---
PT MAKING SLOW PROGRESS TOWARDS GOALS. STANDBY ASSIST WHEN UP TO TOILET. PT WAS ABLE TO TRANSFER SELF FROM BED TO TOILET AND BACK WITHOUT ANY PHYSICAL ASSISTANCE. REPORTING MORE SPONTANEOUS AND FLEETING EPISODES OF GENERALIZED ABDOMINAL PAIN BUT REFUSED OFFERED TO CALL TO PHYSICIAN FOR ANY PAIN MEDICATION.
[2019-04-15 07:48] VITALS: BP 147/79
[2019-04-15 12:06] VITALS: BP 121/65
[2019-04-15 12:49] VITALS: BP 121/65
[2019-04-15] MEDS ORDERED: ELIQUIS2.5 MG PO (12:53)
[2019-04-15] MEDS ORDERED: ATENOLOL 50MG T50 M1 PO (12:53)
[2019-04-15] MEDS ORDERED: TRAMADOL 50 MG50 MG PO (12:54)
[2019-04-15] MEDS ORDERED: COZAAR 50 MG TA50 M1 PO (12:54)
[2019-04-15] MEDS ORDERED: LEXAPRO 10 MG T10 M1 PO (12:55)
--- NOTE | 2019-04-15 14:34 | NUR ---
ON-GOING ASSESSMENT: CM REVIEWED CHART AND PT HAS ORDERS TO DISCHARGE BACK TO SNF TODAY ([facility]). PT IS SOMEWHAT RESISTANT SHE IS STATING SHE COULD NOT SLEEP WELL THERE LAST TIME AND THERE WAS A MAN NEXT TO HER ROOM THAT YELLED. CM DISCUSSED THIS WITH DAUGHTER AND CM REACHED OUT TO LIASON AT [facility] TO SEE IF PATIENT COULD BE MOVED ROOMS WHERE IT WOULD BE MORE QUIETER. ROCK AT [facility] STATING THEY CAN MOVE HER ROOMS AND CM SPOKE WITH BEDSIDE RN AN NOW PT IS AGREEABLE TO GO. CM FAXED D.C ORDERS TO [facility]. CHART COPY WAS ORDERED. CM NOTIFIED BEDSIDE RN THE NUMBER FOR REPORT [facility] TRANSPORTATION WILL BE HERE AT 1600. CM NOTIFIED PTS DAUGHTER.
--- NOTE | 2019-04-15 16:20 | NUR ---
PROGRESSING TOWARDS POC GOALS.DC TO SNF.NOW
--- NOTE | 2019-04-16 10:23 | D ---
[facility] [place] [address] DISCHARGE SUMMARY Name: TIMOTHY MUJICA Room #: 350-P [facility] IN M.R.#: [id number] Admission: 04/09/19 Attend Phys: Jessy Rapp Discharge: 04/15/19 Date of : 36 Report #: [id number] THIS REPORT FOR: //name// CC: Bandar Rendon FINAL DIAGNOSES: 1. Atrial fibrillation with slow ventricular response. 2. Hypertension. 3. Postherpetic neuralgia of the left chest wall. HOSPITAL COURSE: The patient was admitted with weakness and found to be mildly hypotensive and bradycardic. Cardiology readjusted her regimen for atrial fibrillation. She had some mild renal insufficiency at admission that resolved with IV fluid support. It was felt this was just a prerenal status. She was complaining of generalized pain. Chest x-ray was negative. CT head was negative. CT abdomen suggested cholecystitis. Dr. Lino was consulted. Following an ultrasound and HIDA scan, he did not feel she had acute cholecystitis that required intervention and therefore, no further plans for treatment at this time. Cardiology service talked to the patient and her family about treatment for her mitral regurgitation. Plans will be made to see Cardiology services at [facility] for procedural options in regards to this. Dr. Pacheco saw her here, but did not feel there was a surgical intervention he could help with. PHYSICAL EXAMINATION: GENERAL: On the day of discharge, she was awake and alert, sitting up in the chair. She had been working with therapy. LUNGS: Clear. HEART: Regular. ABDOMEN: Soft, normoactive bowel sounds. EXTREMITIES: Showed no edema: VITAL SIGNS: Stable. DISPOSITION: [facility] She will continue current medicines with slightly reduced doses of Eliquis, Cardizem, and atenolol. She will be using gabapentin for postherpetic pain and p.r.n. tramadol. Follow up with Dr. Mancilla in 1-2 weeks for referral on to additional cardiology care in regards to mitral regurgitation. <ELECTRONICALLY SIGNED> By: Darrick Nunez MD 04/16/19 1023 1327 1339 Darrick Nunez MD /nt
--- NOTE | 2019-04-28 12:03 | HC ---
[facility] [place] [address] CONSULTATION Name: TIMOTHY MUJICA Room #: 350-P [facility] IN M.R.#: [id number] Admission: 04/09/19 Attend Phys: Jessy Rapp Discharge: 04/15/19 Date of : 36 Report #: [id number] THIS REPORT FOR: //name// CC: DYLAN Rendon REASON FOR CONSULTATION: Possible gallbladder, possible acute cholecystitis. HISTORY OF PRESENT ILLNESS: The patient is an 84-year-old who has been ill since 03/21/2019. The patient was brought in by her daughter to the Emergency Room because of shortness of breath, wheezing. Also, had pain in the left rib area. The patient with a history of atrial fib and pain in the left chest and ribs is sharp and stabbing in nature. The patient was found to have shingles. The patient was seen by activated sludge attendant, Dr. Miah Alfaro. During this interim, the patient put on Eliquis. The patient was brought back in on 03/31/2019 for weakness. Again, her daughter brought her in. After that hospital stay, she was discharged on the 04/03/2019, went to rehab. The patient was brought in because of hypotension and bradycardia. The patient was noted on this most recent admission to have elevated liver function test. The cause of her symptoms were hard to figure out and the CT was done yesterday, which showed what looks like an inflamed gallbladder, but it was a noncontrast study. There appears to be some thickening of the wall and stranding. There appears to be a stone in the gallbladder. She has quite a bit of fluid, hepatic lateral to the liver, I do not know if that is due to the gallbladder inflammation. Her liver function tests are mildly elevated. Her latest shows a normal SGOT which was elevated to 40 before. Now, it is in the normal range of 31. Her SGPT is 71, alk phos has been normal, no lipase. PHYSICAL EXAMINATION: On exam, the patient is an elderly female. It is difficult to get an accurate exam. Her exam seems to alter. I thought that the patient did seem to have some tenderness in right upper quadrant. There is no obvious mass. Initially, her left upper quadrant was not tender, them her left upper quadrant was moderately tender too. She is soft. No mass. She has a lower midline scar. She has had her appendix removed by history. ASSESSMENT: The patient is an 84-year-old who has been sick for about 3 weeks. She has shingles, heart issues. She does have quite a bit of complex medical problems. She was put on Eliquis and the Eliquis was stopped today. The patient is high risk for surgery, especially in light of she just stopped her Eliquis. I would like to get an ultrasound to get a clear picture with the gallbladder is looking like. If the gallbladder does need intervention at this point, I am leaning towards Interventional Radiology and percutaneous [address] [place] [address] CONSULTATION Name: TIMOTHY MUJICA OCTOBER Room #: 350-P [facility] IN M.R.#: [id number] Admission: 04/09/19 Attend Phys: Jessy Rapp Discharge: 04/15/19 Date of : 36 Report #: [id number] cholecystostomy tube. This should alleviate the inflammation. She is currently on antibiotic, Rocephin and I agree with keeping that going. <ELECTRONICALLY SIGNED> By: Beto Lino MD 04/28/19 1203 1401 2323 Beto Lino MD /nt
== END 2019-04-15 16:14 | DRG 308 ==
LOC: ER 14:37 → EROBS 16:39 → 3W 16:39
PROVIDERS: Emergency Medicine; Internal Medicine; Internal Medicine Geriatric Medicine; Surgery; ADMIT Internal Medicine
DX: I48.91 Unspecified atrial fibrillation (principal); N17.0 Acute kidney failure with tubular necrosis; Q25.6 Stenosis of pulmonary artery; B02.29 Other postherpetic nervous system involvement; N17.9 Acute kidney failure, unspecified; I34.0 Nonrheumatic mitral (valve) insufficiency; Z96.643 Presence of artificial hip joint, bilateral; Z96.652 Presence of left artificial knee joint; E78.00 Pure hypercholesterolemia, unspecified; M19.90 Unspecified osteoarthritis, unspecified site; I25.10 Atherosclerotic heart disease of native coronary artery without angina pectoris; I11.0 Hypertensive heart disease with heart failure; I50.9 Heart failure, unspecified; G89.29 Other chronic pain; Z79.01 Long term (current) use of anticoagulants; Z90.710 Acquired absence of both cervix and uterus; Z98.41 Cataract extraction status, right eye; Z86.73 Personal history of transient ischemic attack (TIA), and cerebral infarction without residual deficits; Z79.899 Other long term (current) drug therapy
CPT/HCPCS: 10879

== ENCOUNTER 2019-05-09 16:07 | Inpatient (IN) | payer OTHER, MEDICARE ==
[~2019-05-09] VITALS: Ht 165.1 cm; Wt 59.7 kg
[~2019-05-09 16:07] MED LIST changes: +ARTIFICIAL TEAR1510 OPHTHALMIC; +ATENOLOL 25MG T25 M1 PO; +ATENOLOL 50MG T50 M1 PO; +COZAAR 50 MG TA50 M1 PO; +ELIQUIS2.5 MG PO; +LEXAPRO 10 MG T10 M1 PO; +SENNA PLUS TAB1 EACH PO
[2019-05-09 16:08] VITALS: BP 94/51
[2019-05-09] MEDS ORDERED: NYSTATIN100000 UNI SW&SWALLOW (16:22)
[2019-05-09] MEDS ORDERED: ALTOPREV40 M1 PO (16:24)
[2019-05-09] MEDS ORDERED: ONDANSETRON HCL4 M2 PO (16:24)
[2019-05-09] MEDS ORDERED: NEURONTIN300 MG PO (16:26)
[2019-05-09] MEDS ORDERED: LISINOPRIL2.5 MG PO (16:29)
[2019-05-09 16:30] LABS: ABSOLUTE NEUTROPHILS 3.1 thou/uL (1.4-8.2); BASOPHILS 0.6 % (0.0-2.0); EOSINOPHILS 0.1 % (0.0-3.0); HEMATOCRIT 40.6 % (37.0-47.0); HEMOGLOBIN 13.1 gm/dL (12.0-15.0); LYMPHOCYTES 30.9 % (24.0-44.0); MCH 31.1 pg (26.0-34.0); MCHC 32.3 g/dL (28.0-37.0); MCV 96.5 fL (80.0-100.0); PLATELET COUNT 186 thou/uL (150-400); POLYS 59.4 % (36.0-66.0); RBC 4.21 mil/uL (4.20-5.00); RDW 15.7 % (10.5-14.5); WBC 5.2 thou/uL (4.0-11.0)
[2019-05-09 16:38] LABS: CALCIUM 9.2 mg/dL (8.5-10.1); CREATININE 1.2 mg/dL (0.6-1.0); POTASSIUM 3.6 mmol/L (3.5-5.1)
[2019-05-09 16:47] LABS: ALBUMIN 3.2 g/dL (3.4-5.0); TOTAL BILIRUBIN 0.7 mg/dL (<0.1-1.0); TROPONIN-I 0.3 ng/mL (<0.06)
[2019-05-09 18:19] VITALS: BP 80/53
[2019-05-09 18:41] VITALS: BP 112/58
[2019-05-09 20:00] VITALS: BP 107/47
--- NOTE | 2019-05-09 21:56 | EKG ---
[address] [address] ELECTROCARDIOGRAM REPORT Name: TIMOTHY MUJICA OCTOBER Room #: 201-P ADM IN M.R.#: [id number] Admission: 05/09/19 Attend Phys: Jessy Rapp Discharge: Date of : 36 Report #: [id number] THIS REPORT FOR: //name// [facility] ED Test Date: 2019-05-09 Test Time: 16:10:11 Pat Name: TIMOHTY MUJICA Department: Room: 201 Gender: F Bank Note Designer: UMAIR : 1935 Requested By: Fatou Beckett Order Number: [id number] MD: Donald Walters Measurements Intervals [place] Rate: 54 P: [place]: QRS: 87 QRSD: 133 T: 69 QT: 452 QTc: 429 Interpretive Statements Atrial fibrillation Nonspecific intraventricular conduction delay Compared to ECG 04/11/2019 07:45:26 Ventricular premature complex(es) no longer present Electronically Signed On 05-09-2019 21:56:35 STUDENT DEAN by Donald Walters [email or web address] <ELECTRONICALLY SIGNED> By: Donald Walters MD, [facility] 05/09/19 2156 09 09 Donald Walters MD, [facility] /EPI
[2019-05-10 00:10] VITALS: BP 111/72
[2019-05-10 03:35] VITALS: BP 146/86
[2019-05-10 04:58] LABS: CALCIUM 9.2 mg/dL (8.5-10.1); CREATININE 1.1 mg/dL (0.6-1.0); POTASSIUM 3.3 mmol/L (3.5-5.1)
[2019-05-10 08:34] VITALS: BP 144/78
[2019-05-10 12:30] VITALS: BP 148/91
--- NOTE | 2019-05-10 12:59 | EKG ---
[address] [address] ELECTROCARDIOGRAM REPORT Name: TIMOTHY MUJICA Room #: 201-P ADM IN M.R.#: [id number] Admission: 05/09/19 Attend Phys: Jessy Rapp Discharge: Date of : 36 Report #: [id number] THIS REPORT FOR: //name// [facility] Test Date: 2019-05-10 Test Time: 07:46:03 Pat Name: TIMOTHY MUJICA Department: Room: 201 P Gender: F First Press Operator: HARPREET : 1935 Requested By: Donald Walters Order Number: [id number] MD: Donald Walters Measurements Intervals [place] Rate: 96 P: [place]: QRS: 85 QRSD: 132 T: 20 QT: 375 QTc: 474 Interpretive Statements Atrial fibrillation Ventricular premature complex Poor R wave progression Nonspecific intraventricular conduction delay Compared to ECG 05/09/2019 16:10:11 Ventricular premature complex(es) now present Electronically Signed On 05-10-2019 12:59:02 AFFILIATE MANAGER by Donald Walters [email or web address] <ELECTRONICALLY SIGNED> By: Donald Walters MD, [facility] 05/10/19 1259 0746 0746 Donald Walters MD, [facility] /EPI
--- NOTE | 2019-05-10 15:29 | NUR ---
pt receiving lasix, was up to bedside commode with maximum assist. bed was wet, pt dribbled on the floor and had 300cc in hat inside bedside commode. pt extremely weak and incontinent. external female catheter applied, all urine is now in canula instead of her bed. will monitor.
[2019-05-10 16:27] VITALS: BP 122/77
[2019-05-10 19:51] VITALS: BP 136/83
[2019-05-11 03:06] VITALS: BP 141/80; BP 154/70
--- NOTE | 2019-05-11 05:34 | NUR ---
ASSUMED PT CARE AT 1900. PT IS ALERT BUT FORGETFUL. NO SIGN OF DISTRESS NOTED IN PT. DENIES ANY PAIN. FALL PRECAUTION IN PLACE. ASSESSMENT COMPLETED AND DOUCMENTED. VSS. SCHEDULED MEDS ADMINISTERED TO PT. TOLERATED PO INTAKE. DENIES ANY FURTHER NEEDS AT THIS TIME.
[2019-05-11 08:25] VITALS: BP 144/96
--- NOTE | 2019-05-11 11:38 | NUR ---
Pt resting in bed with assessed this morning. bed was wet. external female catheter in place, but suction was disconnected. reconnected, changed bed and pt into clean linens/gown. daughter, Amparo, at side. discussed plan of care. daughter verbalized understanding
[2019-05-11 12:07] VITALS: BP 134/73
--- NOTE | 2019-05-11 15:47 | NUR ---
patient admits from [facility]. patient with new placement at [facility] in Apr 03 2019. Patient admits with CHF however dtr reports patient has an apt with roller operator Dr Robbin Mendiola Saturday and they are familiar with patient. Dtr requests transfer to [facility]. Sp with service learning coordinator and initated transfer. Await if accepting and bed avail.
[2019-05-11 16:19] VITALS: BP 129/90
--- NOTE | 2019-05-11 17:22 | NUR ---
[facility] transfer team returned call to caset and alerted at this time rn palliative care to sp with [facility] to determine need for transfer if will expedite transfer. plan no transfer this evening but casemgt to initate again in am. Updated dtr and RN.
--- NOTE | 2019-05-11 19:37 | H ---
[facility] [place] [address] HISTORY AND PHYSICAL Name: TIMOTHY MUJICA Room #: 201-P ADM IN M.R.#: [id number] Admission: 05/09/19 Attend Phys: Jessy Rapp Discharge: Date of : 36 Report #: [id number] THIS REPORT FOR: //name// CC: Bandar Walters DATE OF SERVICE: 05/09/2019 HISTORY OF PRESENT ILLNESS: This is an 84-year-old female with congestive heart failure, who [facility] and has not been doing well and recently began to have more shortness of breath to the point that required ER visit. She has had recent hospitalizations for atrial fibrillation and the development of mitral regurgitation, which she has had a longstanding history of pulmonic regurgitation and recent atrial fibrillation with Eliquis use. She has also had recent shingles, hypertension, hyperlipidemia, osteoarthritis with left knee replacement. MEDICATIONS: List includes atenolol, losartan, diltiazem, and apixaban. FAMILY HISTORY, SOCIAL HISTORY, REVIEW OF SYSTEMS: Otherwise, negative. PHYSICAL EXAMINATION: GENERAL: Shows her to be lying in bed. She looks frightened, her family members at the bedside. HEENT: Otherwise, negative. NECK: Supple, without thyromegaly or adenopathy. CHEST: Diminished and coarse. CARDIOVASCULAR: Showed irregular rhythm with the chronic diastolic murmur that she has had for years, pulmonic insufficiency along with mitral regurgitation. ABDOMEN: Soft and nontender. EXTREMITIES: Negative. NEUROLOGIC: Nonfocal, even though she seemed a little confused to me today. ASSESSMENT AND PLAN: This is an 84-year-old female well known to my service and I cared for her for approximately 20 years, who clearly has had change in her cardiac status with the development of mitral regurgitation, atrial fibrillation and congestive heart failure with comorbid conditions of longstanding pulmonic insufficiency. Hopefully, we can find a way to manage her valvular heart disease and improve her general strength. <ELECTRONICALLY SIGNED> By: Bandar Andersen MD 05/11/19 1937 1139 1334 Bandar Andersen MD /[facility]
[2019-05-11 19:45] VITALS: BP 157/99
--- NOTE | 2019-05-12 02:23 | NUR ---
A/O X 3.FORGETFUL AT TIMES.TYLENOL GIVEN FOR PAIN.NO RELIEF.TRAMADOL GIVEN ORDERED.PT SLEEPING.MONITOR SHOWS AFIB.ON EXTERNAL FEMALE CATH.POC CONTINUED.
[2019-05-12 04:44] LABS: CALCIUM 9.4 mg/dL (8.5-10.1); CREATININE 0.8 mg/dL (0.6-1.0); POTASSIUM 3.5 mmol/L (3.5-5.1)
[2019-05-12 05:33] VITALS: BP 149/105
[2019-05-12 07:53] VITALS: BP 152/89
--- NOTE | 2019-05-12 10:42 | NUR ---
INITIATED TRANSFER TO [facility] TODAY. AT THIS TIME [facility] REPORTS DR MAO DOES NOT HAVE AN ANSWER THEY ARE STILL REVIEWING. UPDATED RN.
[2019-05-12 11:50] VITALS: BP 122/75
--- NOTE | 2019-05-12 15:31 | NUR ---
spoke with dtr, [facility] transfer team and Dr Nunez. patient is not a canddiate to transfer to [facility]. [facility] reports same care here at [facility] as [facility]. Alerted dtr to cancel her outpaitent cardiology clinic visit for KEELY as patient will be inpatient here at [facility]. Patient has cardiology clinic visit at [facility] Saturday at 09:45. Dr Nunez sp with dtr regarding patient not transferring.
[2019-05-12 16:36] VITALS: BP 135/97
[2019-05-12 20:44] VITALS: BP 134/84
[2019-05-13 05:01] VITALS: BP 120/88
[2019-05-13 05:32] LABS: CALCIUM 9.9 mg/dL (8.5-10.1); CREATININE 0.9 mg/dL (0.6-1.0); POTASSIUM 3.8 mmol/L (3.5-5.1)
[2019-05-13 05:39] LABS: HEMATOCRIT 45.7 % (37.0-47.0); HEMOGLOBIN 14.9 gm/dL (12.0-15.0); MCH 31.1 pg (26.0-34.0); MCHC 32.6 g/dL (28.0-37.0); MCV 95.5 fL (80.0-100.0); RBC 4.79 mil/uL (4.20-5.00); RDW 15.2 % (10.5-14.5); WBC 7.4 thou/uL (4.0-11.0)
[2019-05-13 07:20] VITALS: BP 115/70
--- NOTE | 2019-05-13 08:11 | NUR ---
pt c/om generlized pain, moaned when turning or repositioning, prn pin meds given and pt resting quietly intermittently, external catheter changed and repositioned, remains afib per monitor, vss, report given to next shift to con't pt ppoc.
[2019-05-13 11:20] VITALS: BP 92/58
--- NOTE | 2019-05-13 11:22 | NUR ---
ASSUMED CARE OF PT APPROX 0715, LEFT EYE BLIND/PROSTHESIS, QUIET ANSWERS, ANSWERS LOC QUESTIONS, HESITATED ON PRESIDENT ANSWER. MINIMAL APPETITE, NEEDS HELP W/FOOD SET UP AND ENCOURAGEMENT TO GO AHEAD AND REACH FORWARD. HELPED IN BETWEEN WELL THERAPY. GEN'L PAIN ALL OVER RELIEVED W/TRAMODOL. ENCOURAGED HER TO USE CALL LIGHT FOR ANY NEEDS AND DID RETURN DEMO, SUCCESSFULLY WITH HER. INCONTINENT AND FEMALE EXT CATH IN USE. SEE INTERVENTIONS FOR ASSESSMENTS
--- NOTE | 2019-05-13 13:26 | NUR ---
FAXED CLINICAL UPDATE TO [facility] SPOKE WITH CARLOS A IN ADM SHE RECEIVED UPDATE AND ANTICIPATE DC TOMORROW 05/14.
[2019-05-13 16:18] VITALS: BP 129/83
[2019-05-13 16:37] VITALS: BP 129/83
[2019-05-13 20:37] VITALS: BP 110/88
[2019-05-14 05:07] VITALS: BP 132/97
--- NOTE | 2019-05-14 05:51 | NUR ---
PT RESTING QUIETLY IN BED ASSISTED WITH Q 2 HR TURNS, C/O TENDERNESS TO LEFT SIDE AND ALL OVER GENERLAIZED PAIN, PRN PAIN MEDS GIVEN.
[2019-05-14 07:10] VITALS: BP 113/68
[2019-05-14 10:24] LABS: CALCIUM 9.9 mg/dL (8.5-10.1); CREATININE 1.2 mg/dL (0.6-1.0); POTASSIUM 5.2 mmol/L (3.5-5.1)
[2019-05-14 11:55] VITALS: BP 108/66
--- NOTE | 2019-05-14 12:39 | NUR ---
Call rec'd from the pt's dtr Amparo this am requesting tx to [facility]. Forestry Engineer spoke with the transfer nurse at [facility] and they have declined the pt indicating that the procedure she wants to be evaluated for is an outpt procedure and they can not offer any other service in acute care that we are already providing. Dtr updated. Nursing messaged Dr. Alfaro to contact the dtr regarding request for a KEELY. Pt's dtr also left a message for Dr. Nunez. Forestry Engineer spoke with Edilma Coles at [phone] [facility] Valve and Vascular clinic. She will reach out to Dr. Sanchez office and see if she can get her doctors in touch with Dr. Alfaro to discuss the case. Forestry Engineer requested that the 10am for the valve clinic tomorrow be reschedule to next week as the pt is still inpt and will not be able to make the appt. Message left for Hazel in Dr. Alfaro's office to call Edilma Coles at [facility]. The attending and the care team has been updated. Dc timeframe is uncertain. Will follow.
[2019-05-14 15:15] VITALS: BP 99/75
--- NOTE | 2019-05-14 19:28 | NUR ---
ASSUMED CARE AT 0700, SHIFT ASSESSMENT DONE, MEDS GIVEN, VSS. WORKED WITH PHYSICAL THERAPHY, SITTING UP IN THE CHAIR. INCONTINENT OF BOWEL AND BLADDER. DR HARRINGTON WAS NOTIFIED ABOUT THE THE DAUGHTER'S CONCERN AND ZITA, CAMPUS SECURITY DIRECTOR INTERVENED AND [facility] HAS ACCEPTED THE PT, AWAITING FOR A BED. AFIB ON THE MONITOR, ON 2L NC. WILL CONTINUE TO ASSESS AND ASSIST WITH ADLs NEEDED.
[2019-05-14 20:35] VITALS: BP 141/83
--- NOTE | 2019-05-15 04:41 | NUR ---
PT RESTING COMFORTABLE NOW. BUT HAS REQUIRED PAIN MED DURING SHIFT. CONTINUES IN AFIB AND CONTROLLED. 2L PER NC. AM LABS PENDING RESULT.
[2019-05-15 04:50] VITALS: BP 148/75
[2019-05-15 06:51] LABS: CREATININE 1.5 mg/dL (0.6-1.0); POTASSIUM 4.8 mmol/L (3.5-5.1)
[2019-05-15 07:15] VITALS: BP 122/74
[2019-05-15 11:10] VITALS: BP 123/83
--- NOTE | 2019-05-15 14:01 | NUR ---
Call placed to [facility] transfer team as the pt is on their wait list for a inpt bed in their heart institute. Awaiting status update. Chart copy updated per the unit sec. [facility] and transfer form on the chart. Dtr anxious for transfer.
[2019-05-15 15:05] VITALS: BP 105/56
--- NOTE | 2019-05-15 17:15 | NUR ---
Call back rec'd from [facility] Tx Team and they have a bed in the heart inst for the pt (H425). The attending, care team, and dtr notified. Dtr to meet the pt there. Nursing will call her when the pt leaves. Nursing has given report to the tx RN. [facility] form faxed and they have pt scheduled as " ready now" however they are backed for a couple of hours. Chart copy is ready to be sent with the pt.
[2019-05-15 17:45] VITALS: BP 134/93
--- NOTE | 2019-05-15 17:46 | NUR ---
RECEIVED PT'S CARE AROUND 0700; PT. ON BED RESTING WITH EYES CLOSED; EQUAL CHEST RISING; DURING ASSESSMENT PT. ALERT TO PERSON; C/O GENERALIZED PAIN; AM MEDICATION GIVEN WITH STRAWBERRY YOGURTH; DAUGHTER AT THE BED SIDE; C/O NAUSEA WHEN COUGH LIQUID MEDICATION GIVEN; NO VOMITING; THROUGH THE DAY C/O GENERALIZED PAIN; SCHEDULED MEDICATION GIVEN; TURNED FROM SIDE TO SIDE; REDNESS NOTICED OVER L. SIDE BUTTOCKS; BARRIER CREAM APPLIED; AFIB ON THE HEART MONITOR; AROUND 1700 PER [facility]ARNESSMAKER BED AVAILABLE ON [facility]; PHYSICIAN NOTIFIED; D/C ORDERS ON PLACE; REPORT CALLED TO KIARA GOMEZ; DAUGHTER NOTIFIED BY HARNESSMAKER; Tyler BARRY IV WORKING; ASSESMENT CHARGED; FOLLOWING POC; PASSED ON REPORT;
--- NOTE | 2019-05-19 13:02 | D ---
[facility] [place] [address] DISCHARGE SUMMARY Name: TIMOTHY MUJICA Room #: 201-P DIS IN M.R.#: [id number] Admission: 05/09/19 Attend Phys: Jessy Rapp Discharge: 05/15/19 Date of : 37 Report #: [id number] THIS REPORT FOR: //name// CC: Bandar Walters DATE OF SERVICE: 05/15/2019 FINAL DIAGNOSES: 1. Mitral regurgitation. 2. Tricuspid regurgitation. 3. Pulmonary hypertension. 4. Congenital valvular heart disease. 5. Atrial fibrillation. 6. Mild protein-calorie malnutrition. 7. Acute on chronic diastolic congestive heart failure. 8. Hyponatremia. 9. Prerenal azotemia. HOSPITAL COURSE: The patient was admitted with shortness of breath and was diagnosed and treated for acute on chronic diastolic heart failure given elevated BNP and pulmonary edema on x-ray. She received IV diuretics and was followed by the Cardiology Service. She has known congenital valvular heart disease, but also recent echo showed significant mitral and tricuspid regurgitation, pulmonary hypertension. Please see those dictated reports. She is well known to the Cardiology Service. Her treatment plan was to stabilize her heart failure and then proceed with evaluation at [facility] for mitral valve clip procedure. She developed some mild hyponatremia and prerenal azotemia during her stay and diuretics were discontinued. I had several conversations with the transfer service at [facility] and Dr. Alfaro as well. Eventually, the Cardiology service at [facility] agreed to take her transfer and she was transferred over on 05/15/2019. DISPOSITION: As mentioned, she is being transferred to [facility] per [facility] on the [place] under the Cardiology Service for evaluation and treatment of her mitral valve disease. <ELECTRONICALLY SIGNED> By: Darrick Nunez MD 05/19/19 1302 [id number] Darrick Nunez MD /nt
== END 2019-05-15 20:02 | disposition short-term general hospital (02) | DRG 291 ==
LOC: ER 16:07 → EROBS 18:05 → 2N 18:05
PROVIDERS: Emergency Medicine; Internal Medicine; Internal Medicine Cardiovascular Disease; Internal Medicine Geriatric Medicine; Nurse Practitioner Adult Health; ADMIT Internal Medicine
DX: I13.0 Hypertensive heart and chronic kidney disease with heart failure and stage 1 through stage 4 chronic kidney disease, or unspecified chronic kidney disease (principal); I50.33 Acute on chronic diastolic (congestive) heart failure; G93.41 Metabolic encephalopathy; E44.1 Mild protein-calorie malnutrition; E87.1 Hypo-osmolality and hyponatremia; Z96.643 Presence of artificial hip joint, bilateral; Z96.652 Presence of left artificial knee joint; E78.00 Pure hypercholesterolemia, unspecified; M19.90 Unspecified osteoarthritis, unspecified site; I48.91 Unspecified atrial fibrillation; G89.29 Other chronic pain; I08.1 Rheumatic disorders of both mitral and tricuspid valves; N18.9 Chronic kidney disease, unspecified; I27.20 Pulmonary hypertension, unspecified; Z68.21 Body mass index [BMI] 21.0-21.9, adult; Z86.73 Personal history of transient ischemic attack (TIA), and cerebral infarction without residual deficits; Z98.42 Cataract extraction status, left eye; Z98.41 Cataract extraction status, right eye
CPT/HCPCS: 10081